=== PATIENT | male | born 1940 | race Caucasian/White ===

== ENCOUNTER 2021-05-02 23:08 | Outpatient (CLI) | payer MEDICARE, OTHER | END 2021-05-02 23:09 | disposition short-term general hospital (02) | LOC: EMS 23:08 | DX: R07.89 Other chest pain (principal); R10.9 Unspecified abdominal pain; R14.0 Abdominal distension (gaseous) | CPT/HCPCS: A0425; A0427 ==

== ENCOUNTER 2023-05-10 09:47 | Outpatient (CLI) | payer OTHER ==
--- NOTE | 2023-05-10 13:20 | Ultrasound Report ---
PROCEDURE: Abdomen Limited INDICATIONS: CIRRHOSIS TECHNIQUE: Real-time focused scanning was performed of the abdomen, with image documentation. COMPARISONS: None. FINDINGS: Liver: Coarse, heterogeneous, and mildly hyperechoic hepatic echotexture. No dominant mass. The righ t lobe measures 12.4 cm in length, normal. Gallbladder: There is a collection of mobile stones at the fundus. The largest measures about 1 cm in diameter. Gallbladder wall is normal thickness. No pericholecystic fluid or sonographic Villanueva sign. Biliary ducts: Intrahepatic bile ducts are non-dilated. Extrahepatic bile duct caliber measures 7 m m. Normal is 6-7 mm or less in diameter, or 10 mm or less post-cholecystectomy. Pancreas: Pancreas not well seen due to patient body habitus. Right kidney: Normal in size and echotexture. Right kidney measures 10 cm long. No hydronephrosis or nephrolithiasis. No solid masses. No complex renal cystic lesions which require follow-up. Aorta: Visualized aorta is normal in caliber at less than 3 cm. IVC: Intrahepatic inferior vena cava is patent. Miscellaneous: No free abdominal fluid. IMPRESSION: Heterogeneous hepatic echotexture suggesting intrinsic liver disease. Cholelithiasis without sonographic evidence of acute cholecystitis. Reviewed by: Ashley Garcia MD on 05/10/2023 1:19 PM PST Approved by: Ashley Garcia MD on 05/10/2023 1:19 PM PST Station ID: [id number]
== END 2023-05-10 09:48 | disposition home or self-care (01) ==
LOC: DI 09:47
PROVIDERS: ATTEND Family Medicine
DX: K70.30 Alcoholic cirrhosis of liver without ascites (principal); K80.20 Calculus of gallbladder without cholecystitis without obstruction

== ENCOUNTER 2023-12-09 17:03 | Outpatient (CLI) | payer OTHER | END 2023-12-09 23:59 | disposition critical access hospital (66) | LOC: EMS 17:03 | DX: R07.89 Other chest pain (principal); R11.0 Nausea; R61 Generalized hyperhidrosis | CPT/HCPCS: A0425; A0427 ==

== ENCOUNTER 2023-12-09 17:36 | Emergency (ER) | payer OTHER ==
--- NOTE | 2023-12-09 17:57 | ED Physician Documentation ---
PD HPI CHEST PAIN - Stated complaint Stated Complaint: CP - Chief complaint Chief Complaint: Cardiac - History obtained from History obtained from: Patient - Additional information Additional information: This is an 83-year-old male who has a history of descending thoracic aortic aneurysm, Alcohol induced cirrhosis, hypertension, hyperlipidemia, GERD, type 2 diabetes who presented with gradually approximately weeklong history of mid epigastric and right upper quadrant pain. He states pain is excruciating directly in the midepigastric region but also has tenderness in right upper quadrant. Today EMS was called and he received nitro with no improvement in his symptoms thus brought to the ER. Pain does not radiate into his chest, he has no shortness of breath, pain is not worse w/ exertion. He has had decreased appetite but no nausea or vomiting, no diarrhea or constipation, no urinary symptoms. He has not had a fever to his knowledge. Per review of records [facility] from 2021, patient had a history of a right bundle branch block, and a prior bilirubin of 3.2 up to 6.1 with mildly elevated ALT and AST. At that hospitalization he had an ultrasound showing cholelithiasis, fatty liver and cirrhosis but no evidence of biliary dilation. He had MRCP which showed no obstruction. The patient Was instructed to follow- up with outpatient GI but does not believe that he has been doing so. He states he has continued to drink alcohol though cut back recently when the symptoms started because he thought it may be contributing. He states he is also not adhere to a low-fat diet, eats a fairly fat heavy diet with steak, and likes to put a sausage gravy or other gravy on most things that he eats. He is not sure if symptoms worsened with p.o. intake however. Review of Systems Constitutional: reports: Reviewed and negative Eyes: reports: Reviewed and negative Ears: reports: Reviewed and negative Nose: reports: Reviewed and negative Throat: reports: Reviewed and negative Cardiac: reports: Reviewed and negative Respiratory: reports: Reviewed and negative GI: reports: Abdominal Pain. denies: Nausea, Vomiting, Constipation, Diarrhea, Hematemesis, Bloody / black stool : reports: Reviewed and negative Skin: reports: Reviewed and negative Musculoskeletal: reports: Reviewed and negative Neurologic: reports: Reviewed and negative Psychiatric: reports: Reviewed and negative PD PAST MEDICAL HISTORY - Past Medical History Past Medical History: Yes Cardiovascular: Hypertension, High cholesterol Neuro: Peripheral neuropathy Endocrine/Autoimmune: Type 2 diabetes GI: GERD, Ulcers Musculoskeletal: Osteoarthritis, Other - Past Surgical History Past Surgical History: Yes General: Appendectomy Ortho: Arthroscopic surgery, Other - Present Medications Home Medications: Ambulatory Orders Medication Instructions Recorded Confirmed Doxycycline Hyclate 100 mg PO BID #14 cap 11/15/21 Famotidine [Pepcid] 20 mg PO BID #60 tablet 12/09/23 HYDROcod/ACETAM 5/325 [[place] 5/325] 1 - 2 tablet PO Q6H PRN #10 tablet 12/09/23 - Allergies Allergies/Adverse Reactions: Allergies Allergy/AdvReac Type Severity Reaction Status Date / Time No Known Drug Allergies Allergy Verified 12/09/23 17:42 - Social History Does the pt smoke?: No Smoking Status: Never smoker Does the pt drink ETOH?: Yes Does the pt have substance abuse?: No - Immunizations Immunizations are current?: Yes PD ED PE NORMAL - Vitals Vital signs reviewed: Yes - General General: Alert and oriented X 3, No acute distress, Well developed/nourished - HEENT HEENT: Atraumatic, Moist mucous membranes - Neck Neck: Supple, no meningeal sign, No JVD - Cardiac Cardiac: RRR, No murmur, No gallop, No rub - Respiratory Respiratory: No respiratory distress, Clear bilaterally - Abdomen Abdomen: Normal bowel sounds, Soft, Other (ttp mid epigastric and ruq w/ guarding) - Back Back: No CVA TTP, No spinal TTP - Derm Derm: Normal color, No rash - Extremities Extremities: No deformity, No tenderness to palpate, Normal ROM s pain, No edema, No calf tenderness / cord - Neuro Neuro: Alert and oriented X 3 Eye Opening: Spontaneous Motor: Obeys Commands Verbal: Oriented GCS Score: 15 - Psych Psych: Normal mood, Normal affect Results - Vitals Vitals: Vital Signs - 24 hr 12/09/23 12/09/23 12/09/23 17:42 19:01 19:35 Temperature 36.8 C Heart Rate 75 79 73 Respiratory 21 25 H 21 Rate Blood Pressure 128/89 H 157/94 H 163/91 H O2 Saturation 97 98 99 12/09/23 20:52 Temperature Heart Rate 89 Respiratory 22 Rate Blood Pressure 161/107 H O2 Saturation 99 Oxygen O2 Source Room air - EKG (time done) No standard instances EKG releavant findings:: EKG personally interpreted by author of this note. Relevant findings are: Rate: Rate (enter#) (71) Rhythm: NSR Intervals: Normal SC, RBBB QRS: Normal Ischemia: Normal ST segments Compare to prior EKG: Old EKG unavailable Computer interpretation: Agree with computer - Labs Labs: Laboratory Tests 12/09/23 12/09/23 12/09/23 17:55 17:55 19:18 WBC 8.6 RBC 4.39 L Hgb 13.4 L Hct 40.4 L MCV 92.0 MCH 30.5 MCHC 33.2 RDW 12.7 Plt Count 253 MPV 9.3 Neut # (Auto) 6.2 Lymph # (Auto) 1.1 L Rabun # (Auto) 0.8 Eos # (Auto) 0.2 Baso # (Auto) 0.1 Absolute Nucleated RBC 0.00 Nucleated RBC % 0.0 Sodium 134 L Potassium 3.4 L Chloride 95 L Carbon Dioxide 30 Anion Gap 9.0 BUN 17 Creatinine 0.9 Estimated GFR (MDRD) 81 L Glucose 236 H Calcium 9.3 Total Bilirubin 3.7 H AST 33 ALT 61 H Alkaline Phosphatase 194 H Troponin I High Sens 3.6 4.5 Total Protein 6.6 Albumin 3.7 Globulin 2.9 Albumin/Globulin Ratio 1.3 Lipase 64 - Rads (name of study) No standard instances Relevant Findings:: Final report received PD Medical Decision Making - ED course Complexity details: reviewed old records, reviewed results, re-evaluated patient, considered differential, d/w patient, d/w family ED course: This is a 83-year-old male with past medical history as listed above who presented with epigastric and right upper quadrant pain over the course of last week as described in HPI. This was initially triaged as a chest pain patient and ACS was considered in the differential however after examining the patient it was clear that his symptoms were more midepigastric and right upper quadrant. I considered additional differentials including gastritis, GERD, cholelithiasis, cholecystitis, choledocholithiasis, cholangitis, pancreatitis, bowel obstruction, bowel perforation, pneumonia, pneumothorax, Among other broad differentials. We obtained an EKG which shows no acute ischemic changes, labs notable for a reassuring troponin x 2, fairly stable CBC without leukocytosis, and elevated but stable liver enzymes including a bilirubin of 3.2 elevated but stable liver enzymes including a bilirubin of 3.2, similar to patient's prior values at [facility] in 2021. Patient does have a history of cirrhosis. He has a normal lipase today and have low suspicion for choledocholithiasis or cholangitis and suspected this was a symptomatic cholelithiasis. Chest xray negative. T A CT scan shows a distended and gallstone filled gallbladder but no signs of acute cholecystitis or common bile duct dilatation. Right upper quadrant ultrasound shows similar findings. He patient was given Dilaudid with improvement in his pain. He also received famotidine for possible component of gastritis. The patient has had improvement in his symptoms, and is essentially pain-free at this time, and there are no signs of acute cholecystitis, therefore I do believe he is stable for discharge home but have advised him to adhere to a low-fat diet, completely abstain from alcohol, start on famotidine, and will discharge him with as needed [place]. He should follow-up with outpatient general surgery to discuss possible removal of the gallbladder. He was also encouraged to follow-up with GI as previously instructed. He was given strict return precautions if he should develop recurrence of pain, fever, vomiting, or new concerns. Patient states understanding and is discharged home in stable condition with his . Departure - Departure Disposition: 01 Home, Self Care Clinical Impression: Biliary colic Gastroesophageal reflux disease Qualifiers: Esophagitis presence: without esophagitis Qualified Code(s): K21.9 - Gastro- esophageal reflux disease without esophagitis Liver cirrhosis Qualifiers: Hepatic cirrhosis type: unspecified hepatic cirrhosis Ascites presence: without ascites Qualified Code(s): K74.60 - Unspecified cirrhosis of liver Condition: Good Instructions: ED Gallstone W Biliary Colic Follow-Up: [facility] [Provider Group] Prescriptions: HYDROcod/ACETAM 5/325 [[place] 5/325] 1 - 2 tablet PO Q6H PRN #10 tablet PRN Reason: Pain Famotidine [Pepcid] 20 mg PO BID #60 tablet Comments: Please adhere to a low fat diet. Your high fat diet is likely triggering your gallstone pain. Follow up with general surgery outpatient to discuss possible gallbladder surgery. Right now, it does not appear infected and does not need to be removed emergently, but if you have persistent symptoms they may recommend removal. If you develop a fever at anytime or vomiting and unable to take oral fluid/foods, please return to the ER. If your pain is not controlled with the medication provided, then return to the ER. Your heart labs today are stable. The pain is likely from your gallbladder and possibly from some gastritis as well and it is less likely coming from your heart. 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 I am prescribing a short course of narcotic pain medication for you. These are potentially dangerous and addictive medications that should be used carefully. These medications may constipate you. Take an [id number] stool softener (docusate) twice daily with plenty of water while taking these medications. If you go 24 hours without a bowel movement, take [id number] miralax, per package instructions. Do not drink or drive while taking these medications. If you received narcotic or sedating medications while in the emergency department, do not drive for 24 hours. Store this medication in a safe, secure place and out of reach of children. It is a violation of federal law to give or sell this medication to another person or to use in a manner other than prescribed. The ED will not refill narcotic prescriptions, including prescriptions lost or stolen. To dispose of unwanted medications: 1. [facility] provides a drop box for medication in pill form only (no liquids) 8:00 am to 4:30 p.m. Saturday-Saturday in the lobby of the [facility], [address] [place] [address]. Empty pills into ziplock bag before disposal. Call [phone] for information. 2.[employer] is a free service available to all [facility] residents. Go to [email or web address] Note that many narcotic pain relievers also contain Tylenol/acetaminophen. Please ensure that your total dose of acetaminophen from all sources does not exceed 3 g (3000 mg) per day. Forms: PCP List Discharge Date/Time: 12/09/23 21:26
[2023-12-09 18:04] LABS: BASOPHILS # (AUTO) 0.1 10^3/uL (0.0-0.1); BASOPHILS % (AUTO) 0.6 %; EOSINOPHILS # (AUTO) 0.2 10^3/uL (0.0-0.7); EOSINOPHILS % (AUTO) 2.4 %; HCT - HEMATOCRIT 40.4 % (42.0-52.0); HGB - HEMOGLOBIN 13.4 g/dL (14.0-18.0); LYMPHOCYTES # (AUTO) 1.1 10^3/uL (1.5-3.5); LYMPHOCYTES % (AUTO) 13.3 %; MEAN CORPUSCULAR HEMOGLOBIN 30.5 pg (27.0-31.0); MEAN CORPUSCULAR HGB CONC 33.2 g/dL (32.0-36.0); MEAN PLATELET VOLUME 9.3 fL (7.4-11.4); MONOCYTES # (AUTO) 0.8 10^3/uL (0.0-1.0); MONOCYTES % (AUTO) 9.6 %; NEUTROPHILS # (AUTO) 6.2 10^3/uL (1.5-6.6); NEUTROPHILS % (AUTO) 72.2 %; PLT - PLATELET COUNT 253 10^3/uL (130-450); RED BLOOD COUNT 4.39 10^6/uL (4.70-6.10); RED CELL DISTRIBUTION WIDTH 12.7 % (12.0-15.0); WHITE BLOOD COUNT 8.6 x10^3/uL (4.8-10.8)
--- NOTE | 2023-12-09 18:08 | XRAY Report ---
PROCEDURE: Chest 1V INDICATIONS: Chest pain TECHNIQUE: One view of the chest was acquired. COMPARISON: None. FINDINGS: Surgical changes and devices: None. Lungs and pleura: No pleural effusions or pneumothorax. Lungs are clear. Mediastinum: Mildly tortuous thoracic aorta. Heart size is enlarged. Bones and chest wall: No suspicious bony lesions. Overlying soft tissues appear unremarkable. IMPRESSION: No acute cardiopulmonary process. Reviewed by: Wale Sharma MD on 12/09/2023 6:06 PM PDT Approved by: Wale Sharma MD on 12/09/2023 6:06 PM PDT Station ID: [id number]
[2023-12-09] MEDS: HYDROmorphone 0.5 MG/0.5 ML SYRINGE IVP STA (18:19)
[2023-12-09 18:21] LABS: TROPONIN I HIGH SENSITIVITY 3.6 ng/L (2.3-19.7)
[2023-12-09 18:28] LABS: ALBUMIN 3.7 g/dL (3.2-5.5); ALBUMIN/GLOBULIN RATIO 1.3 (1.0-2.2); BILIRUBIN,TOTAL 3.7 mg/dL (0.2-1.0); CALCIUM 9.3 mg/dL (8.5-10.3); CREATININE 0.9 mg/dL (0.6-1.3); POTASSIUM 3.4 mmol/L (3.5-4.5); TOTAL PROTEIN 6.6 g/dL (6.4-8.9)
[2023-12-09] MEDS ORDERED: iohexoL-300 100 ML VIAL ONE (18:30)
[2023-12-09] MEDS: iohexoL-300 100 ML VIAL IVP ONE (18:55)
--- NOTE | 2023-12-09 19:04 | CT Report ---
PROCEDURE: Abdomen/Pelvis W INDICATIONS: RUQ/epigastric pain CONTRAST: 100ml [id number] TECHNIQUE: After the administration of intravenous contrast, a CT scan of the abdomen and pelvis was performed. Images were recorded and evaluated at appropriate window settings. Reformats: coronal and sagittal. F or radiation dose reduction, the following was used: automated exposure control, adjustment of mA and /or kV according to patient size. COMPARISON: Ultrasound of abdomen dated 05/10/2023. FINDINGS: Image quality: Diagnostic. Lower chest: Bibasilar scarring/atelectasis is seen. Heart size is normal, no pericardial effusion.. Liver: Hepatic steatosis is seen. No gross solid-appearing hepatic lesion. Gallbladder: Gallbladder is distended. Calcified stones are noted in dependent portion of gallbladder lumen. No gallbladder wall thickening or pericholecystic fluid. Foci of calcifications are also note d in nondependent portion of gallbladder wall. Biliary tree: No intrahepatic or extrahepatic dilation, accounting for age. Spleen: No splenomegaly. Pancreas: No discrete pancreatic lesion. Mild prominence of pancreatic duct measures up to 4 mm in di ameter. Adrenals: No adrenal nodule. Kidneys and ureters: No hydronephrosis. No renal cystic lesion which requires follow up. No solid mas s. Stomach, bowel and peritoneum: No gastric or small bowel dilation. No abnormal wall thickening. No pa thologic free fluid. No peritoneal free air. Sigmoid diverticulosis without CT evidence of acute dive rticulitis. Lymph nodes: No central or retroperitoneal adenopathy. Vessels: No infrarenal aortic aneurysm. Patent portal vein. Atherosclerotic calcifications are noted throughout the abdominal aorta. PELVIS Reproductive organs: Enlarged prostate gland with mass effect on floor of urinary bladder is seen.. Bladder: No abnormal wall thickening, accounting for underdistention. Pelvic lymph nodes: No pelvic adenopathy by size criteria. Bones: No aggressive osseous abnormality. Degenerative endplate changes are noted in lower thoracic a nd lumbar spine. Other: No significant ventral or inguinal hernia. IMPRESSION: 1. Hepatic steatosis, no discrete hepatic lesion. 2. Gallbladder is distended. Multiple multiple calcified gallstones and gallbladder wall calcificatio ns. No gallbladder wall thickening or pericholecystic fluid to suggest acute cholecystitis. No discre te gallbladder wall mass. 3. No gross biliary ductal dilatation. Mild prominence of pancreatic duct with atrophic appearing wilson creas, no discrete pancreatic mass. No peripancreatic inflammatory changes. 4. No bowel obstruction or abnormal bowel seen. Colonic diverticulosis without evidence of acute dive rticulitis. No free fluid of free air. Reviewed by: Wale Sharma MD on 12/09/2023 7:03 PM PDT Approved by: Wale Sharma MD on 12/09/2023 7:03 PM PDT Station ID: [id number]
[2023-12-09] MEDS: HYDROmorphone 1 MG/ML CARPUJECT IVP STA (19:35)
[2023-12-09 19:38] VITALS: O2SAT 99
[2023-12-09] MEDS: FAMOTIDINE 20 MG/2 ML VIAL IVP STA (20:37)
[2023-12-09 20:59] VITALS: BP 161/107
[2023-12-09] MEDS: HYDROcod/ACET 5/325 Prepack 4 PO STA (21:20)
--- NOTE | 2023-12-09 21:32 | Ultrasound Report ---
PROCEDURE: Abdomen Limited INDICATIONS: please eval cbd and any signs of cholecystitis TECHNIQUE: Real-time focused scanning was performed of the abdomen, with image documentation. COMPARISONS: None. FINDINGS: Liver measures 16 cm. Coarsened echogenic appearance. Main portal vein is patent. Cholelithiasis and distended gallbladder without focal tenderness. CBD measures 6 mm, at the upper lateral normal. Pancreas not well seen. Right kidney measures 12 cm. IMPRESSION: Cholelithiasis without sonographic Villanueva's sign. Distended gallbladder. Coarsened echogenic appearance of the liver, nonspecific, possibly fibrosis or fibrofatty infiltratio n. Reviewed by: Chris Weaver MD on 12/09/2023 9:31 PM PDT Approved by: Chris Weaver MD on 12/09/2023 9:31 PM PDT Station ID: [id number]
== END 2023-12-09 21:26 | disposition home or self-care (01) ==
LOC: EDUNIT# → ED 17:36
DX: K80.50 Calculus of bile duct without cholangitis or cholecystitis without obstruction (principal); K21.9 Gastro-esophageal reflux disease without esophagitis; K70.30 Alcoholic cirrhosis of liver without ascites; I71.23 Aneurysm of the descending thoracic aorta, without rupture; I10 Essential (primary) hypertension; E78.5 Hyperlipidemia, unspecified; E11.42 Type 2 diabetes mellitus with diabetic polyneuropathy
CPT/HCPCS: 36415; 71045; 74177; 76705; 80053; 83690; 84484; 85025; 93005; 96374; 96375; 96376; 99284; J1170; Q9967